=== PATIENT | male | born 1935 | race Caucasian/White ===

== ENCOUNTER 2017-02-06 12:14 | Emergency (ER) | payer OTHER ==
[2017-02-06 12:20] VITALS: BP 171/94; TEMP 97.4; BMI 17.4
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
[2017-02-06 12:58] LABS: COCAIN SCREEN,URINE NEGATIVE (NEGATIVE)
== END 2017-02-06 13:24 | disposition home or self-care (01) ==
LOC: ED 12:14
DX: R42 Dizziness and giddiness (principal); R53.1 Weakness; F17.210 Nicotine dependence, cigarettes, uncomplicated
CPT/HCPCS: 80306; 99282